=== PATIENT | male | born 1975 | race Hispanic/Latino ===

== ENCOUNTER 2016-05-19 19:36 | Emergency (ER) | payer MEDICARE, MEDICAID ==
[~2016-05-19] VITALS: Ht 160 cm; Wt 98.0 kg
[~2016-05-19 19:36] MED LIST: ALEVE220 MG OR; AMOXICILLIN500 MG PO; BACTRIM DS1 TAB PO; CEPHALEXIN500 MG PO; CIPRO250 MG OR; CIPRO500 MG OR; CIPROFLOXACIN250 MG OR; CIPROFLOXACN500 MG PO; COZAAR100 MG OR; COZAAR100 MG PO; COZAAR50 MG OR; DIABETA5 MG OR; KEFLEX250 MG PO; LORTAB 10 PO; LORTAB 5 OR; LORTAB 5/3255 MG PO; LORTAB 7.5 OR; LORTAB 7.57.5 MG PO; LORTAB5 PO; LOSARTAN POT100 MG; MERREM500 MG IV; METHOCARBAMOL750 MG PO; MEVACOR10 MG OR; NAC IV; NORCO1 TA1 PO; NORMAL SALIN0.9 % IV; ONDANSETRON4 MG PO; PERCOCET 5/325M1 TAB OR; PHENERGAN25 MG/TAB PO; PHOSLO667 M1 PO; PRAVASTATIN20 MG OR; PRAVASTATIN20 MG PO; PYRIDIUM200 MG OR; RANITIDINE150 MG; RYBIX ODT50 MG; RYBIX ODT50 MG OR; TRAMADOL HCL50 MG OR; TUMS CALCIUM F750 MG PO; ULTRAM50 M1 OR; ULTRAM50 M1 PO; UNABLE TO RECONCILE; VANCOMYCIN HCL1 GM IV; ZANTAC150 M1 PO; ZOFRAN ODT4 MG PO; ZOFRAN ODT4 MG SL; ZOFRAN ODT8 MG PO; ZUPLENZ8 MG; [UNRECOGNIZED DRUG - OTHER] IV
[2016-05-19 20:09] LABS: HEMATOCRIT 39.9 % (39.0-50.0); HEMOGLOBIN 13.6 g/dl (14.0-18.0); IMMATURE GRANULOCYTES 0.7 % (0.0-1.0); MEAN CELL VOLUME 97.3 fL CALC (80.0-100.0); MEAN CORPUSCULAR HGB 33.2 pG CALC (26.0-32.0); MEAN CORPUSCULAR HGB CONC 34.1 g/L CALC (32.0-36.0); NEUT# 6.45 thou/uL (1.82-7.42); RED BLOOD COUNT 4.1 mill/uL (4.70-6.10); RED CELL DISTRI WIDTH 13.2 % (11.5-15.5)
[2016-05-19 20:15] LABS: ALBUMIN 4.9 g/dL (3.2-5.0); BILIRUBIN, TOTAL 0.6 mg/dL (0.0-1.4); CALCIUM 8.8 mg/dL (8.4-10.2); POTASSIUM 4.2 mmol/l (3.5-5.1); TOTAL PROTEIN 9.2 g/dL (6.3-8.2)
[2016-05-19 20:19] LABS: CREATININE 7.8 mg/dL (0.7-1.3)
[2016-05-19] MEDS ORDERED: ULTRAM50 M1 PO (21:56)
[2016-05-19 22:25] VITALS: BP 130/75
== END 2016-05-19 22:25 | disposition home or self-care (01) ==
LOC: ED 19:36
PROVIDERS: Emergency Medicine
DX: R10.32 Left lower quadrant pain (principal); I12.0 Hypertensive chronic kidney disease with stage 5 chronic kidney disease or end stage renal disease; N18.6 End stage renal disease; Z99.2 Dependence on renal dialysis

== ENCOUNTER 2016-10-11 22:33 | Emergency (ER) | payer MEDICARE, MEDICAID ==
[~2016-10-11] VITALS: Ht 160 cm; Wt 99.0 kg
[2016-10-12 00:36] VITALS: BP 145/90
[2016-10-12] MEDS ORDERED: ULTRAM50 M1 PO (01:38)
== END 2016-10-12 01:40 | disposition home or self-care (01) ==
LOC: ED 22:33
DX: M23.92 Unspecified internal derangement of left knee (principal); I12.9 Hypertensive chronic kidney disease with stage 1 through stage 4 chronic kidney disease, or unspecified chronic kidney disease; N18.3 Chronic kidney disease, stage 3 (moderate)

== ENCOUNTER 2017-10-17 21:18 | Emergency (ER) | payer MEDICARE, MEDICAID ==
[~2017-10-17] VITALS: Ht 160 cm; Wt 100.4 kg
[2017-10-17] MEDS ORDERED: TRAMADOL HCL50 MG PO (22:43)
[2017-10-17 23:17] VITALS: BP 132/76
== END 2017-10-17 23:17 | disposition home or self-care (01) ==
LOC: ED 21:18
DX: S29.011A Strain of muscle and tendon of front wall of thorax, initial encounter (principal); N18.6 End stage renal disease; Z99.2 Dependence on renal dialysis; X58.XXXA Exposure to other specified factors, initial encounter

== ENCOUNTER 2018-06-10 10:22 | Emergency (ER) | payer MEDICARE, MEDICAID ==
[~2018-06-10] VITALS: Ht 160 cm; Wt 100.0 kg
[~2018-06-10 10:22] MED LIST changes: +TRAMADOL HCL50 MG PO
[2018-06-10] MEDS ORDERED: REGLAN10 MG PO (11:14)
[2018-06-10] MEDS ORDERED: RANITIDINE150 M1 PO (11:14)
[2018-06-10 14:21] LABS: HEMATOCRIT 37.4 % (39.0-50.0); HEMOGLOBIN 12.1 g/dl (14.0-18.0); IMMATURE GRANULOCYTES 0.6 % (0.0-5.0); MEAN CELL VOLUME 102.5 fL CALC (80.0-100.0); MEAN CORPUSCULAR HGB 33.2 pG CALC (26.0-32.0); MEAN CORPUSCULAR HGB CONC 32.4 g/L CALC (32.0-36.0); NEUT# 5.19 thou/uL (1.82-7.42); RED BLOOD COUNT 3.65 mill/uL (4.70-6.10)
[2018-06-10 15:04] LABS: ALBUMIN 4.3 g/dL (3.2-5.0); BILIRUBIN, TOTAL 0.6 mg/dL (0.0-1.4); POTASSIUM 4.5 mmol/l (3.5-5.1)
[2018-06-10 15:06] LABS: CREATININE 8.3 mg/dL (0.7-1.3); TOTAL PROTEIN 7.1 g/dL (6.3-8.2)
[2018-06-10 15:16] LABS: URINE BILIRUBIN - DIPSTICK NEGATIVE (NEGATIVE); URINE BLOOD DIPSTICK MODERATE (NEGATIVE); URINE COLOR YELLOW; URINE GLUCOSE - DIPSTICK 100 mg/dL (NEGATIVE); URINE KETONE NEGATIVE (NEGATIVE); URINE NITRITE - DIPSTICK NEGATIVE (Negative); URINE PROTEIN - DIPSTICK 100 mg/dL (NEG-TRACE); URINE SPECIFIC GRAVITY 1.015; URINE UROBILINOGEN - DIPSTICK 0.2 E.U./dL (0.2)
[2018-06-10 15:27] LABS: URINE LEUK ESTERASE LARGE (NEGATIVE)
[2018-06-10 15:29] LABS: URINE SQUAMOUS EPITHELIAL CELL FEW EPI/hpf (0-FEW)
[2018-06-10] MEDS ORDERED: CEPHALEXIN500 M1 PO (16:57)
[2018-06-10] MEDS ORDERED: PHENERGAN25 MG/TAB PO (17:07)
[2018-06-10 17:11] VITALS: BP 143/81
== END 2018-06-10 17:10 | disposition home or self-care (01) ==
LOC: ED 10:22
PROVIDERS: Family Medicine
DX: M54.5 Low back pain (principal); M62.830 Muscle spasm of back; R10.32 Left lower quadrant pain; N20.0 Calculus of kidney; Z87.442 Personal history of urinary calculi; F17.210 Nicotine dependence, cigarettes, uncomplicated; I12.0 Hypertensive chronic kidney disease with stage 5 chronic kidney disease or end stage renal disease; N18.6 End stage renal disease; Z99.2 Dependence on renal dialysis

== ENCOUNTER 2018-07-19 20:12 | Emergency (ER) | payer MEDICARE, MEDICAID ==
[~2018-07-19] VITALS: Ht 160 cm; Wt 100.0 kg
[~2018-07-19 20:12] MED LIST changes: +CEPHALEXIN500 M1 PO; +RANITIDINE150 M1 PO; +REGLAN10 MG PO
[2018-07-19 21:39] LABS: HEMATOCRIT 34.3 % (39.0-50.0); HEMOGLOBIN 11.8 g/dl (14.0-18.0); IMMATURE GRANULOCYTES 0.6 % (0.0-5.0); MEAN CELL VOLUME 98.6 fL CALC (80.0-100.0); MEAN CORPUSCULAR HGB 33.9 pG CALC (26.0-32.0); MEAN CORPUSCULAR HGB CONC 34.4 g/L CALC (32.0-36.0); NEUT# 5.29 thou/uL (1.82-7.42); RED BLOOD COUNT 3.48 mill/uL (4.70-6.10)
[2018-07-19 22:00] LABS: ALBUMIN 4.4 g/dL (3.2-5.0); POTASSIUM 4.3 mmol/l (3.5-5.1); TOTAL PROTEIN 7.3 g/dL (6.3-8.2)
[2018-07-19 22:02] LABS: BILIRUBIN, TOTAL 0.3 mg/dL (0.0-1.4)
[2018-07-19 22:03] LABS: CREATININE 6.9 mg/dL (0.7-1.3)
[2018-07-19] MEDS ORDERED: AMOXICILLIN500 MG PO (22:10)
[2018-07-19] MEDS ORDERED: AMOXICILLIN/PO500 MG PO (22:19)
[2018-07-19 23:00] VITALS: BP 165/88
== END 2018-07-19 23:05 | disposition home or self-care (01) ==
LOC: ED 20:12
PROVIDERS: Emergency Medicine
DX: K11.20 Sialoadenitis, unspecified (principal); F17.210 Nicotine dependence, cigarettes, uncomplicated; H92.02 Otalgia, left ear; R50.9 Fever, unspecified

== ENCOUNTER 2018-08-22 11:56 | Emergency (ER) | payer MEDICARE, MEDICAID ==
[~2018-08-22] VITALS: Ht 160 cm; Wt 98.0 kg
[~2018-08-22 11:56] MED LIST changes: +AMOXICILLIN/PO500 MG PO
[2018-08-22 12:36] LABS: HEMATOCRIT 35.2 % (39.0-50.0); HEMOGLOBIN 11.5 g/dl (14.0-18.0); IMMATURE GRANULOCYTES 0.7 % (0.0-5.0); MEAN CELL VOLUME 98.6 fL CALC (80.0-100.0); MEAN CORPUSCULAR HGB 32.2 pG CALC (26.0-32.0); MEAN CORPUSCULAR HGB CONC 32.7 g/L CALC (32.0-36.0); NEUT# 6.39 thou/uL (1.82-7.42); RED BLOOD COUNT 3.57 mill/uL (4.70-6.10); RED CELL DISTRI WIDTH 11.9 % (11.5-15.5)
[2018-08-22 12:51] LABS: ALBUMIN 4.4 g/dL (3.2-5.0); ALKALINE PHOSPHATASE 186 u/l (38-126); ANION GAP 20 (6-22 (CALC)); BUN 27 mg/dL (9-20); CARBON DIOXIDE 26 mmol/l (22-30); CHLORIDE 98 mmol/l (95-108); LIPASE 126 u/l (23-300); POTASSIUM 4.6 mmol/l (3.5-5.1); SGOT/AST 22 u/l (17-59); SODIUM 138 mmol/l (137-146); TOTAL PROTEIN 7.5 g/dL (6.3-8.2)
[2018-08-22 12:54] LABS: BILIRUBIN, TOTAL 0.6 mg/dL (0.0-1.4); BUN/CREATININE RATIO 3 (12-20 (CALC)); GFR 6 ML/MIN (>=60 (CALC)); GFR FOR AFR.AMER. 7 ML/MIN (>=60 (CALC))
[2018-08-22 13:00] LABS: MYOGLOBIN 232 ng/mL (0 - 121)
[2018-08-22 15:39] VITALS: BP 161/77
== END 2018-08-22 15:39 | disposition home or self-care (01) ==
LOC: ED 11:56
PROVIDERS: Family Medicine
DX: R07.9 Chest pain, unspecified (principal); N18.6 End stage renal disease; F17.200 Nicotine dependence, unspecified, uncomplicated; Z99.2 Dependence on renal dialysis

== ENCOUNTER 2018-11-21 10:41 | Emergency (ER) | payer MEDICARE, MEDICAID ==
[~2018-11-21] VITALS: Ht 160 cm; Wt 97.0 kg
[2018-11-21 11:44] VITALS: BP 129/78
== END 2018-11-21 11:48 | disposition home or self-care (01) ==
LOC: ED 10:41
DX: S93.402A Sprain of unspecified ligament of left ankle, initial encounter (principal); I12.0 Hypertensive chronic kidney disease with stage 5 chronic kidney disease or end stage renal disease; N18.6 End stage renal disease; Z99.2 Dependence on renal dialysis; F17.210 Nicotine dependence, cigarettes, uncomplicated; X58.XXXA Exposure to other specified factors, initial encounter

== ENCOUNTER 2018-12-18 20:01 | Emergency (ER) | payer MEDICARE, MEDICAID ==
[~2018-12-18] VITALS: Ht 160 cm; Wt 101.8 kg
[2018-12-18] MEDS ORDERED: TRAMADOL HYDROC50 MG PO (20:25)
[2018-12-18 20:56] VITALS: BP 148/73
== END 2018-12-18 21:02 | disposition home or self-care (01) ==
LOC: ED 20:01
DX: G89.29 Other chronic pain (principal); M25.572 Pain in left ankle and joints of left foot; M25.571 Pain in right ankle and joints of right foot; I12.0 Hypertensive chronic kidney disease with stage 5 chronic kidney disease or end stage renal disease; N18.6 End stage renal disease; F17.210 Nicotine dependence, cigarettes, uncomplicated; Z99.2 Dependence on renal dialysis

== ENCOUNTER 2018-12-25 11:12 | Emergency (ER) | payer MEDICARE, MEDICAID ==
[~2018-12-25] VITALS: Ht 160 cm; Wt 90.0 kg
[~2018-12-25 11:12] MED LIST changes: +TRAMADOL HYDROC50 MG PO
[2018-12-25] MEDS ORDERED: LABETALOL HYDR100 MG PO (11:25)
[2018-12-25] MEDS ORDERED: IBUPROFEN600 MG PO (11:49)
[2018-12-25 11:59] VITALS: BP 144/65
== END 2018-12-25 11:59 | disposition home or self-care (01) ==
LOC: ED 11:12
DX: G89.29 Other chronic pain (principal); M25.572 Pain in left ankle and joints of left foot; M25.571 Pain in right ankle and joints of right foot; I12.0 Hypertensive chronic kidney disease with stage 5 chronic kidney disease or end stage renal disease; N18.6 End stage renal disease; Z99.2 Dependence on renal dialysis; F17.200 Nicotine dependence, unspecified, uncomplicated

== ENCOUNTER 2019-01-31 04:39 | Emergency (ER) | payer MEDICARE, MEDICAID ==
[~2019-01-31] VITALS: Ht 160 cm; Wt 97.0 kg
[~2019-01-31 04:39] MED LIST changes: +IBUPROFEN600 MG PO; +LABETALOL HYDR100 MG PO
[2019-01-31 05:35] LABS: IMMATURE GRANULOCYTES 0.6 % (0.0-5.0); MEAN CELL VOLUME 94.2 fL CALC (80.0-100.0); MEAN CORPUSCULAR HGB 32.4 pG CALC (26.0-32.0); MEAN CORPUSCULAR HGB CONC 34.4 g/L CALC (32.0-36.0); NEUT# 5.07 thou/uL (1.82-7.42); RED BLOOD COUNT 2.75 mill/uL (4.70-6.10); RED CELL DISTRI WIDTH 11.8 % (11.5-15.5)
[2019-01-31 05:45] LABS: HEMATOCRIT 25.9 % (39.0-50.0); HEMOGLOBIN 8.9 g/dl (14.0-18.0)
[2019-01-31 05:55] LABS: ALBUMIN 3.9 g/dL (3.2-5.0); BILIRUBIN, TOTAL 0.6 mg/dL (0.0-1.4); BUN 45 mg/dL (9-20); CHLORIDE 94 mmol/l (95-108); SGOT/AST 16 u/l (17-59); TOTAL PROTEIN 6.8 g/dL (6.3-8.2)
[2019-01-31 05:58] LABS: BUN/CREATININE RATIO 4 (12-20 (CALC)); GFR 5 ML/MIN (>=60 (CALC)); GFR FOR AFR.AMER. 6 ML/MIN (>=60 (CALC)); SODIUM 127 mmol/l (137-146)
[2019-01-31 05:59] LABS: ALKALINE PHOSPHATASE 289 u/l (38-126); ANION GAP 21 (6-22 (CALC)); CARBON DIOXIDE 18 mmol/l (22-30)
[2019-01-31 06:00] LABS: CREATININE 12.1 mg/dL (0.7-1.3); POTASSIUM 6.1 mmol/l (3.5-5.1)
[2019-01-31 06:07] LABS: MYOGLOBIN 391 ng/mL (0 - 121)
[2019-01-31 09:00] VITALS: BP 157/71
[2019-03-15] MEDS ORDERED: PROTONIX40 M2 PO (15:32)
[2019-03-15] MEDS ORDERED: NOVOLIN R100 UNIT/M (15:32)
== END 2019-01-31 09:00 ==
LOC: ED 04:39
PROVIDERS: Emergency Medicine
DX: I13.2 Hypertensive heart and chronic kidney disease with heart failure and with stage 5 chronic kidney disease, or end stage renal disease (principal); I50.9 Heart failure, unspecified; E11.22 Type 2 diabetes mellitus with diabetic chronic kidney disease; N18.6 End stage renal disease; E87.5 Hyperkalemia; F17.210 Nicotine dependence, cigarettes, uncomplicated; Z99.2 Dependence on renal dialysis; R06.02 Shortness of breath

== ENCOUNTER 2019-03-03 11:00 | Emergency (ER) | payer MEDICARE, MEDICAID ==
[2019-03-03] MEDS ORDERED: OFLOXACIN0.3 % AS (12:00)
[2019-03-03 12:17] VITALS: BP 138/84
[2019-03-15] MEDS ORDERED: NOVOLIN R100 UNIT/M (15:32)
[2019-03-15] MEDS ORDERED: PROTONIX40 M2 PO (15:32)
== END 2019-03-03 12:17 | disposition home or self-care (01) ==
LOC: ED 11:00
DX: H60.92 Unspecified otitis externa, left ear (principal); I12.0 Hypertensive chronic kidney disease with stage 5 chronic kidney disease or end stage renal disease; N18.6 End stage renal disease; F17.200 Nicotine dependence, unspecified, uncomplicated; Z99.2 Dependence on renal dialysis

== ENCOUNTER 2019-03-26 | Emergency (ER) | payer MEDICARE, MEDICAID ==
[~2019-03-26] MED LIST changes: +NOVOLIN R100 UNIT/M; +OFLOXACIN0.3 % AS; +PROTONIX40 M2 PO
[2019-03-26 11:04] LABS: IMMATURE GRANULOCYTES 0.4 % (0.0-5.0); MEAN CELL VOLUME 96.5 fL CALC (80.0-100.0); MEAN CORPUSCULAR HGB CONC 32.1 g/L CALC (32.0-36.0); NEUT# 5.71 thou/uL (1.82-7.42); RED BLOOD COUNT 3.74 mill/uL (4.70-6.10); RED CELL DISTRI WIDTH 12.5 % (11.5-15.5)
[2019-03-26 11:05] LABS: HEMATOCRIT 36.1 % (39.0-50.0); HEMOGLOBIN 11.6 g/dl (14.0-18.0)
[2019-03-26 11:15] LABS: ALBUMIN 4.5 g/dL (3.2-5.0); BILIRUBIN, TOTAL 0.8 mg/dL (0.0-1.4); BUN 21 mg/dL (9-20); CHLORIDE 97 mmol/l (95-108); POTASSIUM 5.1 mmol/l (3.5-5.1); SGOT/AST 25 u/l (17-59); TOTAL PROTEIN 8.1 g/dL (6.3-8.2)
[2019-03-26 11:16] LABS: ALKALINE PHOSPHATASE 126 u/l (38-126); ANION GAP 20 (6-22 (CALC)); BUN/CREATININE RATIO 3 (12-20 (CALC)); CARBON DIOXIDE 24 mmol/l (22-30); GFR 7 ML/MIN (>=60 (CALC)); GFR FOR AFR.AMER. 9 ML/MIN (>=60 (CALC)); SODIUM 136 mmol/l (137-146)
[2019-03-26 11:17] LABS: CREATININE 8.2 mg/dL (0.7-1.3)
[2019-03-26 12:43] LABS: URINE BILIRUBIN - DIPSTICK NEGATIVE (NEGATIVE); URINE BLOOD DIPSTICK SMALL (NEGATIVE); URINE COLOR YELLOW; URINE GLUCOSE - DIPSTICK 100 mg/dL (NEGATIVE); URINE KETONE NEGATIVE (NEGATIVE); URINE LEUK ESTERASE NEGATIVE (NEGATIVE); URINE NITRITE - DIPSTICK NEGATIVE (Negative); URINE PH 7.5 (4.5-8.0); URINE PROTEIN - DIPSTICK 100 mg/dL (NEG-TRACE); URINE SPECIFIC GRAVITY 1.015; URINE UROBILINOGEN - DIPSTICK 0.2 E.U./dL (0.2)
[2019-03-26 13:08] LABS: URINE SQUAMOUS EPITHELIAL CELL FEW EPI/hpf (0-FEW)
[2019-03-26] MEDS ORDERED: HYDROCO/APAP1 TA9 PO (13:23)
[2019-03-26] MEDS ORDERED: KEFLEX500 M1 PO (13:23)
== END 2019-03-26 14:05 | disposition home or self-care (01) ==
DX: I13.2 Hypertensive heart and chronic kidney disease with heart failure and with stage 5 chronic kidney disease, or end stage renal disease (principal); I50.9 Heart failure, unspecified; N18.6 End stage renal disease; F17.200 Nicotine dependence, unspecified, uncomplicated; K08.89 Other specified disorders of teeth and supporting structures; Z99.2 Dependence on renal dialysis; R06.02 Shortness of breath

== ENCOUNTER 2019-04-19 10:36 | Emergency (ER) | payer MEDICARE, MEDICAID ==
[~2019-04-19 10:36] MED LIST changes: +HYDROCO/APAP1 TA9 PO; +KEFLEX500 M1 PO
[2019-04-19] MEDS ORDERED: PENICILLN VK500 MG PO (11:43)
[2019-04-19 11:55] VITALS: BP 129/79
== END 2019-04-19 11:55 | disposition home or self-care (01) ==
LOC: ED 10:36
DX: K05.10 Chronic gingivitis, plaque induced (principal); K02.9 Dental caries, unspecified; K04.7 Periapical abscess without sinus; I12.0 Hypertensive chronic kidney disease with stage 5 chronic kidney disease or end stage renal disease; N18.6 End stage renal disease; F17.210 Nicotine dependence, cigarettes, uncomplicated; Z99.2 Dependence on renal dialysis

== ENCOUNTER 2019-04-24 | Emergency (ER) | payer MEDICARE, MEDICAID ==
[~2019-04-24] MED LIST changes: +PENICILLN VK500 MG PO
[2019-04-24 20:02] LABS: HEMATOCRIT 37.4 % (39.0-50.0); IMMATURE GRANULOCYTES 0.3 % (0.0-5.0); MEAN CELL VOLUME 97.1 fL CALC (80.0-100.0); MEAN CORPUSCULAR HGB 31.2 pG CALC (26.0-32.0); MEAN CORPUSCULAR HGB CONC 32.1 g/L CALC (32.0-36.0); NEUT# 6.53 thou/uL (1.82-7.42); RED BLOOD COUNT 3.85 mill/uL (4.70-6.10)
[2019-04-24 20:17] LABS: ALBUMIN 4.2 g/dL (3.2-5.0); ALKALINE PHOSPHATASE 144 u/l (38-126); BILIRUBIN, TOTAL 0.5 mg/dL (0.0-1.4); BUN 34 mg/dL (9-20); CARBON DIOXIDE 23 mmol/l (22-30); CHLORIDE 101 mmol/l (95-108); SGOT/AST 20 u/l (17-59); SODIUM 136 mmol/l (137-146)
[2019-04-24 20:19] LABS: ACT PARTIAL THROMBO TIME 25.9 SECONDS (20.0-32.5); ANION GAP 19 (6-22 (CALC)); INTERNATIONAL NORMALIZED RATIO 0.9 RATIO (0.7-1.3); PROTHROMBIN TIME 9.8 SECONDS (9.0-12.5)
[2019-04-24 20:23] LABS: BUN/CREATININE RATIO 3 (12-20 (CALC)); CREATININE 11.3 mg/dL (0.7-1.3); POTASSIUM 6.5 mmol/l (3.5-5.1)
[2019-04-24 20:30] LABS: MYOGLOBIN 292 ng/mL (0 - 121)
[2019-04-24 20:44] LABS: GFR 6 ML/MIN (>=60 (CALC)); GFR FOR AFR.AMER. 5 ML/MIN (>=60 (CALC))
== END 2019-04-25 02:55 ==
PROVIDERS: Emergency Medicine
DX: R07.9 Chest pain, unspecified (principal); E87.5 Hyperkalemia; E11.22 Type 2 diabetes mellitus with diabetic chronic kidney disease; I12.0 Hypertensive chronic kidney disease with stage 5 chronic kidney disease or end stage renal disease; N18.6 End stage renal disease; Z99.2 Dependence on renal dialysis; Z79.4 Long term (current) use of insulin

== ENCOUNTER 2019-05-10 | Emergency (ER) | payer MEDICARE, MEDICAID ==
[2019-05-10 12:04] LABS: HEMATOCRIT 40.8 % (39.0-50.0); HEMOGLOBIN 13.2 g/dl (14.0-18.0); IMMATURE GRANULOCYTES 0.2 % (0.0-5.0); MEAN CELL VOLUME 95.1 fL CALC (80.0-100.0); MEAN CORPUSCULAR HGB 30.8 pG CALC (26.0-32.0); MEAN CORPUSCULAR HGB CONC 32.4 g/L CALC (32.0-36.0); NEUT# 6.69 thou/uL (1.82-7.42); RED BLOOD COUNT 4.29 mill/uL (4.70-6.10); RED CELL DISTRI WIDTH 13.2 % (11.5-15.5)
[2019-05-10 12:25] LABS: CREATININE 9.4 mg/dL (0.7-1.3); POTASSIUM 5.7 mmol/l (3.5-5.1)
[2019-05-10 12:53] LABS: ALBUMIN 4.6 g/dL (3.2-5.0); BILIRUBIN, TOTAL 0.7 mg/dL (0.0-1.4); TOTAL PROTEIN 7.8 g/dL (6.3-8.2)
[2019-05-10] MEDS ORDERED: AMLODIPINE BESYL5 MG PO (13:58)
[2019-05-10] MEDS ORDERED: KAYEXALATE15 GM/60 M PO (17:21)
== END 2019-05-10 15:20 | disposition home or self-care (01) ==
PROVIDERS: Family Medicine
DX: E83.51 Hypocalcemia (principal); M62.838 Other muscle spasm; E11.22 Type 2 diabetes mellitus with diabetic chronic kidney disease; I12.0 Hypertensive chronic kidney disease with stage 5 chronic kidney disease or end stage renal disease; N18.6 End stage renal disease; F17.210 Nicotine dependence, cigarettes, uncomplicated; Z99.2 Dependence on renal dialysis; Z79.4 Long term (current) use of insulin

== ENCOUNTER 2019-08-24 15:00 | Emergency (ER) | payer MEDICARE, MEDICAID ==
[~2019-08-24] VITALS: Ht 160 cm; Wt 97.5 kg
[~2019-08-24 15:00] MED LIST changes: +AMLODIPINE BESYL5 MG PO; +KAYEXALATE15 GM/60 M PO
[2019-08-24] MEDS ORDERED: HYDROCO/APAP1 TA9 PO ×3 (16:52→16:53)
[2019-08-24 17:30] VITALS: BP 155/73
== END 2019-08-24 17:30 | disposition home or self-care (01) ==
LOC: ED 15:00
DX: M54.6 Pain in thoracic spine (principal); E11.9 Type 2 diabetes mellitus without complications; I10 Essential (primary) hypertension; F17.210 Nicotine dependence, cigarettes, uncomplicated; Z79.4 Long term (current) use of insulin

== ENCOUNTER 2019-11-13 19:29 | Emergency (ER) | payer MEDICARE, MEDICAID ==
[~2019-11-13] VITALS: Ht 160 cm; Wt 95.4 kg
[2019-11-13] MEDS ORDERED: MEDDOSEPAK PO (20:55)
[2019-11-13 21:15] VITALS: BP 142/72
== END 2019-11-13 21:15 | disposition home or self-care (01) ==
LOC: ED 19:29
DX: M75.51 Bursitis of right shoulder (principal); E11.22 Type 2 diabetes mellitus with diabetic chronic kidney disease; I12.0 Hypertensive chronic kidney disease with stage 5 chronic kidney disease or end stage renal disease; N18.6 End stage renal disease; F17.210 Nicotine dependence, cigarettes, uncomplicated; Z99.2 Dependence on renal dialysis; Z79.4 Long term (current) use of insulin

== ENCOUNTER 2020-01-18 18:47 | Emergency (ER) | payer MEDICARE, MEDICAID ==
[~2020-01-18] VITALS: Ht 160 cm; Wt 81.8 kg
[~2020-01-18 18:47] MED LIST changes: +MEDDOSEPAK PO; -NOVOLIN R100 UNIT/M; +NOVOLIN R100 UNIT/M SC
[2020-01-18] MEDS ORDERED: CIPRODEX1 ML AS (19:12)
[2020-01-18 19:28] VITALS: BP 154/87
== END 2020-01-18 19:28 | disposition home or self-care (01) ==
LOC: ED 18:47
DX: H60.92 Unspecified otitis externa, left ear (principal); E11.22 Type 2 diabetes mellitus with diabetic chronic kidney disease; I12.0 Hypertensive chronic kidney disease with stage 5 chronic kidney disease or end stage renal disease; N18.6 End stage renal disease; K21.9 Gastro-esophageal reflux disease without esophagitis; F17.210 Nicotine dependence, cigarettes, uncomplicated; Z99.2 Dependence on renal dialysis; Z79.4 Long term (current) use of insulin

== ENCOUNTER 2020-02-07 17:19 | Emergency (ER) | payer MEDICARE, MEDICAID ==
[~2020-02-07] VITALS: Ht 160 cm; Wt 94.0 kg
[~2020-02-07 17:19] MED LIST changes: +CIPRODEX1 ML AS
[2020-02-07] MEDS ORDERED: NAPROXEN500 MG PO (20:17)
[2020-02-07 20:20] VITALS: BP 129/66
== END 2020-02-07 20:20 | disposition home or self-care (01) ==
LOC: ED 17:19
DX: M54.5 Low back pain (principal); I12.0 Hypertensive chronic kidney disease with stage 5 chronic kidney disease or end stage renal disease; E11.22 Type 2 diabetes mellitus with diabetic chronic kidney disease; N18.6 End stage renal disease; K21.9 Gastro-esophageal reflux disease without esophagitis; F17.210 Nicotine dependence, cigarettes, uncomplicated; W10.9XXA Fall (on) (from) unspecified stairs and steps, initial encounter; Y92.009 Unspecified place in unspecified non-institutional (private) residence as the place of occurrence of the external cause; Z79.4 Long term (current) use of insulin; Z99.2 Dependence on renal dialysis

== ENCOUNTER 2020-05-12 07:00 | Emergency (ER) | payer MEDICARE, MEDICAID ==
[~2020-05-12] VITALS: Ht 160 cm; Wt 110.0 kg
[~2020-05-12 07:00] MED LIST changes: +NAPROXEN500 MG PO
[2020-05-12] MEDS ORDERED: AMOXICILLIN500 M2 PO (07:41)
[2020-05-12 07:48] VITALS: BP 162/82
== END 2020-05-12 07:55 | disposition home or self-care (01) ==
LOC: ED 07:00
DX: J02.0 Streptococcal pharyngitis (principal); E11.22 Type 2 diabetes mellitus with diabetic chronic kidney disease; N18.6 End stage renal disease; K21.9 Gastro-esophageal reflux disease without esophagitis; F17.200 Nicotine dependence, unspecified, uncomplicated; Z79.4 Long term (current) use of insulin; Z99.2 Dependence on renal dialysis

== ENCOUNTER 2020-08-17 20:15 | Emergency (ER) | payer MEDICARE, MEDICAID ==
[~2020-08-17] VITALS: Ht 160 cm; Wt 97.0 kg
[~2020-08-17 20:15] MED LIST changes: +AMOXICILLIN500 M2 PO
[2020-08-17] MEDS ORDERED: VOLTAREN75 MG PO (21:42)
[2020-08-17 21:56] VITALS: BP 109/71
== END 2020-08-17 21:56 | disposition home or self-care (01) ==
LOC: ED 20:15
DX: M54.9 Dorsalgia, unspecified (principal); E11.22 Type 2 diabetes mellitus with diabetic chronic kidney disease; I12.0 Hypertensive chronic kidney disease with stage 5 chronic kidney disease or end stage renal disease; N18.6 End stage renal disease; N20.0 Calculus of kidney; K21.9 Gastro-esophageal reflux disease without esophagitis; Z99.2 Dependence on renal dialysis; Z79.4 Long term (current) use of insulin; F17.210 Nicotine dependence, cigarettes, uncomplicated; Z87.442 Personal history of urinary calculi

== ENCOUNTER 2021-02-14 08:30 | Day surgery (SDC) | payer MEDICARE, MEDICAID ==
[~2021-02-14] VITALS: Ht 160 cm; Wt 101.6 kg
[~2021-02-14 08:30] MED LIST changes: +VOLTAREN75 MG PO
[2021-02-14 10:28] VITALS: BP 126/77
--- NOTE | 2021-02-20 11:17 | NUR ---
PER MD, PATIENT NOTIFIED OF NEGATIVE RESULTS FROM COLONOSCOPY, RECOMMENDED REPEAT X 10 YEARS, AND FOLLOW UP WITH PCP. PATIENT AGREED, VOICED NO CONCERNS AT TIME OF CALL. NOTE AND RESULTS FORWARDED TO PCP FOR CONTINUITY OF CARE.
== END 2021-02-14 10:38 | disposition home or self-care (01) ==
LOC: ENDO 08:30
PROVIDERS: ATTEND Surgery
PROC: 0DBK8ZX Excision of Ascending Colon, Via Natural or Artificial Opening Endoscopic, Diagnostic (ICD-10-PCS; principal; 2021-02-14)
DX: K64.8 Other hemorrhoids (principal); K63.5 Polyp of colon; E11.9 Type 2 diabetes mellitus without complications; Z79.4 Long term (current) use of insulin

== ENCOUNTER 2024-02-01 05:29 | Emergency (ER) | payer MEDICARE, MEDICAID ==
[2024-02-01] VITALS (30 sets, daily range): BP systolic 122–185; BP diastolic 56–94
[~2024-02-01] VITALS: Ht 160 cm; Wt 106.0 kg
[~2024-02-01 05:29] MED LIST changes: +DICYCLOMINE HYD10 MG PO; +LOPRESSOR 550 MG/TAB PO; +MECLIZINE25 MG PO; +MIRALAX17 GM PO; +PEPCID20 MG PO; +PHOSLO667 MG PO
[2024-02-01] MEDS ORDERED: NITROGLYCERIN IN D5W 250 ML IV ONE (05:40)
[2024-02-01] MEDS ORDERED: SODIUM CHLORIDE 0.9% 250 ML IV PRN (05:40)
[2024-02-01] MEDS ORDERED: ALBUTEROL108 MCG/AC IN (05:56)
[2024-02-01] MEDS ORDERED: TOPROL XL50 MG PO (05:59)
[2024-02-01] MEDS ORDERED: VANCOMYCIN HCL 1 GM in SODIUM CHLORIDE 0.9% 250 ML IV ONE (06:30)
[2024-02-01] MEDS ORDERED: AZITHROMYCIN 500 MG in SODIUM CHLORIDE 0.9% 250 ML IV ONE (06:30)
[2024-02-01 06:39] LABS: ALBUMIN 4.4 g/dL (3.2-5.0); BILIRUBIN, TOTAL 0.5 mg/dL (0.2-1.3)
[2024-02-01 06:42] LABS: CREATININE 11.7 mg/dL (0.7-1.3); POTASSIUM 6.3 mmol/l (3.5-5.1)
[2024-02-01] MEDS ORDERED: INSULIN REGULAR (HUMAN) 100 UNIT/ML INJ IV ONE (06:45)
[2024-02-01] MEDS ORDERED: CALCIUM GLUCONATE 2 GM in SODIUM CHLORIDE 0.9% 100 ML IV ONE (06:45)
[2024-02-01] MEDS ORDERED: DEXTROSE 50% 50 ML/SYR IV ONE (06:45)
[2024-02-01] MEDS ORDERED: ALBUTEROL SULFATE 2.5 MG VIAL NEB ONE (06:45)
[2024-02-01 06:47] LABS: BASO% 0.5 % (0-3); EOS% 2.8 % (0-8); HEMATOCRIT 29.7 % (39.0-50.0); HEMOGLOBIN 9.5 g/dl (14.0-18.0); IMMATURE GRANULOCYTES 0.3 % (0.0-5.0); LYMPH% 11.2 % (15-41); MEAN CELL VOLUME 103.1 fL CALC (80.0-100.0); MONO% 4.1 % (2-13); NEUT# 10.38 thou/uL (1.82-7.42); NEUT% 81.1 % (42-76); RED BLOOD COUNT 2.88 mill/uL (4.70-6.10); RED CELL DISTRI WIDTH 12.6 % (11.5-15.5)
== END 2024-02-01 09:30 | disposition short-term general hospital (02) ==
LOC: ED 05:29
PROVIDERS: Emergency Medicine
DX: I13.2 Hypertensive heart and chronic kidney disease with heart failure and with stage 5 chronic kidney disease, or end stage renal disease (principal); E11.22 Type 2 diabetes mellitus with diabetic chronic kidney disease; N18.6 End stage renal disease; I50.9 Heart failure, unspecified; J45.909 Unspecified asthma, uncomplicated; E66.9 Obesity, unspecified; Z87.442 Personal history of urinary calculi; Z99.2 Dependence on renal dialysis; Z72.0 Tobacco use; Z20.822 Contact with and (suspected) exposure to COVID-19

== ENCOUNTER 2024-03-21 03:12 | Emergency (ER) | payer MEDICARE, MEDICAID ==
[~2024-03-21] VITALS: Ht 160 cm; Wt 104.0 kg
[2024-03-21] VITALS (10 sets, daily range): BP systolic 122–147; BP diastolic 58–76
[~2024-03-21 03:12] MED LIST changes: +ALBUTEROL108 MCG/AC IN; +TOPROL XL50 MG PO
[2024-03-21] MEDS ORDERED: NITROGLYCERIN 2% OINT UD 1 GM/PAK TD ONE (03:30)
[2024-03-21] MEDS ORDERED: FUROSEMIDE 40 MG/4 ML SDV IV ONE (03:30)
[2024-03-21 03:47] LABS: BASO% 0.4 % (0-3); EOS% 5.7 % (0-8); HEMATOCRIT 29.8 % (39.0-50.0); HEMOGLOBIN 9.7 g/dl (14.0-18.0); IMMATURE GRANULOCYTES 0.5 % (0.0-5.0); LYMPH% 30.5 % (15-41); MEAN CELL VOLUME 98.3 fL CALC (80.0-100.0); MEAN CORPUSCULAR HGB CONC 32.6 g/dL CAL (32.0-36.0); MONO% 5.6 % (2-13); NEUT# 4.32 thou/uL (1.82-7.42); NEUT% 57.3 % (42-76); RED BLOOD COUNT 3.03 mill/uL (4.70-6.10); RED CELL DISTRI WIDTH 12.5 % (11.5-15.5)
[2024-03-21 03:53] LABS: ALBUMIN 4.6 g/dL (3.2-5.0); ALKALINE PHOSPHATASE 101 u/l (38-126); BILIRUBIN, TOTAL 0.5 mg/dL (0.2-1.3); BUN 77 mg/dL (9-20); CHLORIDE 99 mmol/l (95-108); SGOT/AST 23 u/l (17-59); SODIUM 136 mmol/l (137-146); TOTAL PROTEIN 7.3 g/dL (6.3-8.2)
[2024-03-21 03:59] LABS: INTERNATIONAL NORMALIZED RATIO 0.9 RATIO (0.7-1.3)
[2024-03-21 04:01] LABS: PROTHROMBIN TIME 9.8 SECONDS (9.0-12.5)
[2024-03-21 04:03] LABS: BUN/CREATININE RATIO 6 (12-20 (CALC)); CREATININE 11.9 mg/dL (0.7-1.3); ESTIMATED GFR 5 ML/MIN (>=90 (CALC))
[2024-03-21 04:04] LABS: ANION GAP 20 (6-22 (CALC)); CARBON DIOXIDE 23 mmol/l (22-30)
[2024-03-21] MEDS ORDERED: SODIUM POLYSTYRENE SULFONATE 15 G/BTL POWDER PO ONE (04:45)
[2024-03-21] MEDS ORDERED: CALCIUM GLUCONATE 1 GM in SODIUM CHLORIDE 0.9% 50 ML IV ONE (04:45)
== END 2024-03-21 06:15 | disposition home or self-care (01) ==
LOC: ED 03:12
PROVIDERS: Family Medicine
DX: R06.00 Dyspnea, unspecified (principal); E87.5 Hyperkalemia; E11.22 Type 2 diabetes mellitus with diabetic chronic kidney disease; I12.0 Hypertensive chronic kidney disease with stage 5 chronic kidney disease or end stage renal disease; N18.6 End stage renal disease; Z99.2 Dependence on renal dialysis; F17.200 Nicotine dependence, unspecified, uncomplicated
CPT/HCPCS: J0612; J1940

== ENCOUNTER 2024-05-01 23:22 | Emergency (ER) | payer MEDICARE, MEDICAID ==
[~2024-05-01] VITALS: Ht 160 cm; Wt 95.0 kg
[2024-05-01] MEDS ORDERED: FUROSEMIDE 40 MG/4 ML SDV IV ONE (23:35)
[2024-05-01] MEDS ORDERED: NITROGLYCERIN 2% OINT UD 1 GM/PAK TD ONE (23:35)
[2024-05-01] MEDS ORDERED: MORPHINE SULFATE 4 MG/ML VIAL IV ONE (23:35)
[2024-05-02 00:15] LABS: BASO% 0.3 % (0-3); HEMOGLOBIN 8.8 g/dl (14.0-18.0); IMMATURE GRANULOCYTES 0.6 % (0.0-5.0); LYMPH% 15.5 % (15-41); MEAN CELL VOLUME 101.1 fL CALC (80.0-100.0); MEAN CORPUSCULAR HGB 31.8 pG CALC (26.0-32.0); MEAN CORPUSCULAR HGB CONC 31.4 g/dL CAL (32.0-36.0); MONO% 4.4 % (2-13); NEUT# 7.01 thou/uL (1.82-7.42); NEUT% 75.2 % (42-76); RED BLOOD COUNT 2.77 mill/uL (4.70-6.10); RED CELL DISTRI WIDTH 12.5 % (11.5-15.5)
[2024-05-02 00:26] LABS: ALBUMIN 4.5 g/dL (3.2-5.0); BILIRUBIN, TOTAL 0.5 mg/dL (0.2-1.3); CARBON DIOXIDE 25 mmol/l (22-30); CHLORIDE 98 mmol/l (95-108); SGOT/AST 25 u/l (17-59); SODIUM 135 mmol/l (137-146); TOTAL PROTEIN 7.2 g/dL (6.3-8.2)
[2024-05-02 00:31] LABS: BUN 75 mg/dL (9-20)
[2024-05-02 00:32] LABS: BUN/CREATININE RATIO 7 (12-20 (CALC)); ESTIMATED GFR 5 ML/MIN (>=90 (CALC))
[2024-05-02 00:33] LABS: ALKALINE PHOSPHATASE 116 u/l (38-126); ANION GAP 19 (6-22 (CALC))
[2024-05-02 00:34] LABS: POTASSIUM 6.8 mmol/l (3.5-5.1)
[2024-05-02] MEDS ORDERED: CALCIUM GLUCONATE 1 GM in SODIUM CHLORIDE 0.9% 50 ML IV ONE (00:35)
[2024-05-02] MEDS ORDERED: SODIUM POLYSTYRENE SULFONATE 15 G/BTL POWDER PO ONE (00:35)
[2024-05-02 02:05] VITALS: BP 171/84
[2024-05-02 02:30] VITALS: BP 175/79
== END 2024-05-02 02:30 | disposition home or self-care (01) ==
LOC: ED 23:22
PROVIDERS: Family Medicine
DX: I13.2 Hypertensive heart and chronic kidney disease with heart failure and with stage 5 chronic kidney disease, or end stage renal disease (principal); I50.9 Heart failure, unspecified; E11.22 Type 2 diabetes mellitus with diabetic chronic kidney disease; N18.6 End stage renal disease; Z99.2 Dependence on renal dialysis; F17.200 Nicotine dependence, unspecified, uncomplicated
CPT/HCPCS: J0612; J1940

== ENCOUNTER 2024-05-02 04:00 | Emergency (ER) | payer MEDICARE, MEDICAID ==
[~2024-05-02] VITALS: Ht 160 cm; Wt 95.0 kg
[2024-05-02] MEDS ORDERED: IPRATROPIUM-Albuterol 0.5MG-2.5MG/3 ML NEB ONE (04:05)
[2024-05-02 04:08] VITALS: BP 194/94
[2024-05-02] MEDS ORDERED: NITROGLYCERIN 2% OINT UD 1 GM/PAK TD ONE (04:10)
[2024-05-02 04:30] VITALS: BP 205/90
[2024-05-02 05:06] VITALS: BP 206/94
[2024-05-02 05:29] VITALS: BP 199/79
[2024-05-02 05:30] VITALS: BP 188/96
[2024-05-02] MEDS ORDERED: cloNIDine HCL 0.1 MG/TAB PO ONE (05:35)
[2024-05-02 05:40] VITALS: BP 188/96
== END 2024-05-02 05:40 | disposition home or self-care (01) ==
LOC: ED 04:00
DX: I13.2 Hypertensive heart and chronic kidney disease with heart failure and with stage 5 chronic kidney disease, or end stage renal disease (principal); I50.1 Left ventricular failure, unspecified; E11.22 Type 2 diabetes mellitus with diabetic chronic kidney disease; N18.6 End stage renal disease; F17.200 Nicotine dependence, unspecified, uncomplicated; Z99.2 Dependence on renal dialysis
CPT/HCPCS: J1100